=== PATIENT | female | born 1975 | race Caucasian/White ===

== ENCOUNTER 2017-10-29 09:51 | Day surgery (SDC) | payer OTHER ==
[~2017-10-29 09:51] MED LIST: ACET325 PO; ALBU90OI INH; AMOX500 PO; AZIT500 PO; Bactrim Ds Tab1 EACH PO; CEPH500 PO; CETI10 PO; CRUTCH2 USE; DIAZ5 PO; DIPH50 PO; DOXY100 PO; FISH1000 PO; HYDACE5 PO; HYDHCL25 PO; IBUP600 PO; IBUP800; IBUP800 PO; META800 PO; PRED10 PO; PRED20 PO; PROM25 PO; Phenergan Vc-C120 ML PO; Prednisone10 MG PO; Pyridium200 MG PO; TRIA80TC TOP; Zofran Odt4 MG SL; [UNRECOGNIZED DRUG - OTHER]
[2017-10-29 12:05] LABS: Performing Lab VERACYTE; Test Name FNA
[2017-11-03 07:18] LABS: Result SEE PATHOTH RESULTS
== END 2017-10-29 23:15 | disposition home or self-care (01) ==
LOC: US 09:51
PROVIDERS: Family Medicine
PROC: 0GBH3ZX Excision of Right Thyroid Gland Lobe, Percutaneous Approach, Diagnostic (ICD-10-PCS; principal; 2017-10-29)
DX: E04.1 Nontoxic single thyroid nodule (principal)
CPT/HCPCS: 10022; 76942

== ENCOUNTER 2018-01-15 11:58 | Emergency (ER) | payer OTHER ==
[~2018-01-15] VITALS: Ht 157.5 cm; Wt 63.5 kg
[2018-01-15] MEDS ORDERED: FISH OIL + D31 EACH (12:04)
[2018-01-15] MEDS ORDERED: TYLECOD3 PO (12:20)
[2018-01-15] MEDS ORDERED: Sudogest60 MG PO (12:20)
[2018-01-15] MEDS ORDERED: Zofran8 MG PO (14:01)
== END 2018-01-15 12:29 | disposition home or self-care (01) ==
LOC: ER 11:58
DX: H92.03 Otalgia, bilateral (principal); R05 Cough; R11.0 Nausea; R52 Pain, unspecified; Z87.01 Personal history of pneumonia (recurrent); Z87.891 Personal history of nicotine dependence
CPT/HCPCS: 99283; J1100

== ENCOUNTER 2018-09-01 09:27 | Emergency (ER) | payer OTHER ==
[~2018-09-01] VITALS: Ht 157.5 cm; Wt 61.2 kg
[~2018-09-01 09:27] MED LIST changes: +FISH OIL + D31 EACH; +Sudogest60 MG PO; +TYLECOD3 PO; +Zofran8 MG PO
[2018-09-01] MEDS ORDERED: IBUP800 PO (11:18)
[2018-09-01] MEDS ORDERED: CYCL10 PO (11:18)
[2018-09-01] MEDS ORDERED: HYDR1TAB94 PO (11:18)
== END 2018-09-01 11:31 | disposition home or self-care (01) ==
LOC: ER 09:27
DX: M54.5 Low back pain (principal); M54.6 Pain in thoracic spine; L08.9 Local infection of the skin and subcutaneous tissue, unspecified; F17.210 Nicotine dependence, cigarettes, uncomplicated; W01.0XXA Fall on same level from slipping, tripping and stumbling without subsequent striking against object, initial encounter
CPT/HCPCS: 72070; 72100; 96372; 99283-25; J1885

== ENCOUNTER 2019-01-14 11:52 | Emergency (ER) | payer OTHER ==
[~2019-01-14] VITALS: Ht 157.5 cm; Wt 65.8 kg
[~2019-01-14 11:52] MED LIST changes: +CYCL10 PO; +HYDR1TAB94 PO
[2019-01-14] MEDS ORDERED: Tamiflu75 MG PO (12:59)
== END 2019-01-14 13:05 | disposition home or self-care (01) ==
LOC: ER 11:52
DX: J11.1 Influenza due to unidentified influenza virus with other respiratory manifestations (principal)
CPT/HCPCS: 99282

== ENCOUNTER 2020-03-07 20:49 | Emergency (ER) | payer OTHER ==
[~2020-03-07] VITALS: Ht 157.5 cm; Wt 63.5 kg
[~2020-03-07 20:49] MED LIST changes: +Tamiflu75 MG PO
[2020-03-07 21:17] LABS: BASOPHILS ABSOLUTE AUTO 0.05 K/mm3 (0.00-0.23); BASOPHILS PERCENT AUTO 1 % (0-2); EOSINOPHILS ABSOLUTE AUTO 0.22 K/mm3 (0.00-0.68); EOSINOPHILS PERCENT AUTO 3 % (0-6); Hematocrit 36.6 % (33.0-51.0); Hemoglobin 11.6 g/dL (11.5-16.0); IMMATURE GRAN ABSOLUTE AUTO 0.01 K/mm3 (0.00-0.10); IMMATURE GRAN PERCENT AUTO 0 % (0-1); LYMPHOCYTES PERCENT AUTO 32 % (21-46); MONOCYTES ABSOLUTE AUTO 0.86 K/mm3 (0.16-1.47); MONOCYTES PERCENT AUTO 10 % (4-13); Mean Corpuscular HGB Conc 31.7 g/dL (31.5-36.5); Mean Corpuscular Volume 85 fL (80-100); Mean Platelet Volume 9.7 fL (9.1-12.4); NEUTROPHILS ABSOLUTE AUTO 4.51 K/mm3 (1.96-9.15); NEUTROPHILS PERCENT AUTO 55 % (41-73); Platelet Count 293 K/mm3 (150-400); RDW Coefficient Variation 17.4 % (11.7-14.2); RDW Standard Deviation 53.6 fL (35.1-46.3); White Blood Cell Count 8.25 K/mm3 (4.00-11.30)
[2020-03-07 21:36] LABS: Albumin, Blood 3.4 g/dL (3.4-5.0); Albumin/Globulin Ratio 0.9 (0.8-1.8); Bilirubin, Total 0.2 mg/dL (0.1-1.0); Bun/Creatinine Ratio 12.1 (12.0-20.0); Calcium, Blood 8.3 mg/dL (8.5-10.1); Creatinine, Blood 1.07 mg/dL (0.40-1.00); Globulin, Blood 3.8 g/dL (2.2-4.0); Potassium, Blood 3.6 mmol/L (3.5-5.5); Total Protein, Blood 7.2 g/dL (6.4-8.2)
[2020-03-07 23:11] LABS: Bilirubin, Urine Neg (Neg); Blood, Urine 4+ (Neg); Glucose Qualitative, Urine Neg (Neg); Ketones, Urine Neg (Neg); Leukocyte Esterase, Urine 2+ (Neg); Nitrite, Urine Neg (Neg); Protein, Urine Neg (Neg); Urobilinogen, Urine NORM (Normal)
[2020-03-07 23:15] LABS: Appearance, Urine Hazy (Clear); Color, Urine Yellow (P-Yellow)
[2020-03-07 23:17] LABS: Amorphous Light (0-Heavy); Bacteria Mod /hpf; Squamous Epithelial Cells Rare /hpf (Few); White Blood Cells, Urine TNTC /hpf (0-5)
[2020-03-07] MEDS ORDERED: Flomax0.4 MG PO (23:58)
[2020-03-07] MEDS ORDERED: Norco 5-325 Ta1 EACH PO (23:58)
[2020-03-07] MEDS ORDERED: KETO10 PO (23:58)
[2020-03-07] MEDS ORDERED: CEPH500 PO (23:58)
== END 2020-03-08 00:37 | disposition home or self-care (01) ==
LOC: ER 20:49
PROVIDERS: Emergency Medicine
DX: N13.2 Hydronephrosis with renal and ureteral calculous obstruction (principal); N39.0 Urinary tract infection, site not specified; F17.200 Nicotine dependence, unspecified, uncomplicated; Z79.899 Other long term (current) drug therapy
CPT/HCPCS: 36415; 74176; 80053; 81001; 85025; 87086; 96361; 96365; 96375; 99284-25; A9270; J0696; J1885; J2405; J3010; J7030

== ENCOUNTER 2020-11-14 14:14 | Emergency (ER) | payer OTHER ==
[~2020-11-14] VITALS: Ht 157.5 cm; Wt 59.0 kg
[~2020-11-14 14:14] MED LIST changes: +Flomax0.4 MG PO; +KETO10 PO; +Norco 5-325 Ta1 EACH PO
[2020-11-14] MEDS ORDERED: Monodox100 MG PO (14:46)
[2020-11-14] MEDS ORDERED: KETO10 PO (14:46)
== END 2020-11-14 14:51 | disposition home or self-care (01) ==
LOC: ER 14:14
DX: L03.113 Cellulitis of right upper limb (principal); F17.200 Nicotine dependence, unspecified, uncomplicated
CPT/HCPCS: 99282

== ENCOUNTER 2021-07-28 23:06 | Emergency (ER) | payer OTHER ==
[~2021-07-28] VITALS: Ht 152.4 cm; Wt 63.5 kg
[~2021-07-28 23:06] MED LIST changes: +Monodox100 MG PO
[2021-07-28] MEDS ORDERED: Vibramycin100 MG PO (23:21)
== END 2021-07-28 23:57 | disposition home or self-care (01) ==
LOC: ER 23:06
DX: L03.115 Cellulitis of right lower limb (principal); F17.200 Nicotine dependence, unspecified, uncomplicated
CPT/HCPCS: 99282; A9270

== ENCOUNTER → 2021-07-30 | Outpatient (CLI) | payer OTHER ==
[~2021-07-30] MED LIST changes: +Vibramycin100 MG PO
== END | disposition home or self-care (01) ==
LOC: LAB SHORT 17:41
DX: L03.115 Cellulitis of right lower limb (principal)
CPT/HCPCS: 87070; 87077; 87147; 87186; 87205

== ENCOUNTER 2023-07-11 21:26 | Emergency (ER) | payer OTHER ==
[~2023-07-11] VITALS: Ht 157.5 cm; Wt 65.8 kg
[2023-07-11 21:33] VITALS: BP 174/113
[2023-07-11] MEDS ORDERED: CYCL10 PO (21:43)
== END 2023-07-11 22:50 | disposition home or self-care (01) ==
LOC: ER 21:26
DX: S39.012A Strain of muscle, fascia and tendon of lower back, initial encounter (principal); X50.9XXA Other and unspecified overexertion or strenuous movements or postures, initial encounter; Z88.0 Allergy status to penicillin; Z87.01 Personal history of pneumonia (recurrent); F17.200 Nicotine dependence, unspecified, uncomplicated
CPT/HCPCS: 96372; 99283-25; A9270; J1885